=== PATIENT | female | born 1985 | race Caucasian/White ===

== ENCOUNTER 2018-08-24 17:12 | Emergency (ER) | payer SELFPAY ==
[2018-08-24 17:12] VITALS: BP 118/89; PULSE 115; RESP 16; TEMP 37.1; O2SAT 93; BMI 24.0
--- NOTE | 2018-08-24 17:45 | ED.RN ---
PT STATES I CAN'T WAIT, I'M GOING TO SEE IF THERE'S SOMETHING OVER THE COUNTER I CAN TAKE. [place] AND [place]ILY BACK [place] AND WE CAN'T STAY.
== END 2018-08-24 17:50 | disposition left against medical advice (07) ==
LOC: ED 19:26
PROVIDERS: Emergency Provider Emergency Medicine
DX: R69 Illness, unspecified (principal); Z53.21 Procedure and treatment not carried out due to patient leaving prior to being seen by health care provider

== ENCOUNTER 2018-08-24 21:06 | Emergency (ER) | payer SELFPAY ==
[2018-08-24 17:12] VITALS: BMI 24.0
[2018-08-24 21:07] VITALS: BP 114/82; PULSE 106; RESP 18; TEMP 36.8; O2SAT 95; BMI 25.0
--- NOTE | 2018-08-24 22:21 | ED.VISSUMM ---
- ER Visit Summary Date of Service: 08/24/18 Chief Complaint: Vomiting and abdominal pain History of Present Illness: The patient is a 33 F who presents for vomiting and abdominal pain since lunchtime today. Patient just drove up from [place], and they stopped at a restaurant for lunch. Patient did not feel like eating and shortly thereafter started vomiting. She has been vomiting constantly ever since. Denies any diarrhea. She is having severe abdominal cramping. She is status post cholecystectomy and appendectomy. No fever, cough, congestion or other symptoms. No others in the family have similar symptoms. Patient has history of migraines. Tobacco use. Occasional alcohol use. Physical Examination: Vital signs: afebrile, hemodynamically stable, no hypoxia on room air General: well nourished, well developed, laying in a left lateral recumbent position with knees drawn up to chest and holding an emesis bag, appears uncomfortable Skin: warm, dry, no rash, pale HEENT: normocephalic and atraumatic; PERRL, EOMI, moist mucous membranes Cardiovascular: Tachycardic rate and rhythm without murmurs, no peripheral edema, 2+ pulses all distal extremities Respiratory: No increased work of breathing, lungs are clear to auscultation bilaterally, no rales, rhonchi or wheezing Abdominal: Abdomen is soft, tender in the epigastrium with normoactive bowel sounds, no guarding or rebound, no masses MSK: Moves all extremities, no deformities, normal strength Neuro: Awake and alert, oriented ?4. No facial droop, sensation and motor function intact and symmetric Test Results: Abnormal Lab Results 08/24/18 08/24/18 22:10 22:10 WBC 20.0 H RBC 4.93 Hgb 15.4 H Hct 43.5 MCV 88.2 MCH 31.2 MCHC 35.4 RDW 12.6 RDW Differential 40.5 Plt Count 303 MPV 10.7 Immature Gran % (Auto) 0.300 Neut % (Auto) 92.9 H Lymph % (Auto) 4.2 L [place] % (Auto) 2.5 Eos % (Auto) 0.0 Baso % (Auto) 0.1 Absolute Neuts (auto) 18.6 H Absolute Lymphs (auto) 0.84 Total Counted Not Reportable Sodium 135 L Potassium 3.4 L Chloride 102 Carbon Dioxide 26.0 Anion Gap 7 BUN 6 L Creatinine 0.89 Estim Creat Clear Calc 80.90 Est GFR (MDRD) Af Amer 94 Est GFR (MDRD) Non-Af 77 BUN/Creatinine Ratio 6.7 L Glucose 126 H Calcium 9.4 Total Bilirubin 0.60 AST 35 ALT 25 Alkaline Phosphatase 98 Total Protein 8.0 Albumin 4.1 Globulin 3.9 Albumin/Globulin Ratio 1.1 Lipase 63 L Clinical Impression(s) from Imaging Studies Acute Abdomen Series 08/24/18 22:35 IMPRESSION: Moderate stool in colon. Nonspecific bowel gas pattern. No acute cardiopulmonary disease. Electronically Signed: Luis Daniel Justice, at 23:14 EDT Tel , Service support , Medications Given Ondansetron HCl (Zofran Odt) 0 mg PO .TAKE HOME MED ODILON Discontinued Medications Hyoscyamine Sulfate (Levsinex) 0.375 mg PO NOW STA Stop: 08/24/18 23:46 Last Admin: 08/24/18 23:58 Dose: 0.375 mg Sodium Chloride () 1,000 mls @ 1,000 mls/hr IV .Q1H ONE Stop: 08/24/18 23:19 Last Admin: 08/24/18 22:30 Dose: 1,000 mls/hr Ketorolac Tromethamine (Toradol) 30 mg IV X1 ONE Stop: 08/24/18 22:21 Last Admin: 08/24/18 22:30 Dose: 30 mg Ondansetron HCl (Zofran) 4 mg IV X1 ONE Stop: 08/24/18 22:21 Last Admin: 08/24/18 22:30 Dose: 4 mg Promethazine HCl (Phenergan) 12.5 mg IV X1 ONE Stop: 08/24/18 23:47 Last Admin: 08/24/18 23:53 Dose: 12.5 mg Emergency Department Course and Treatment: Patient was given IV fluids, Zofran and Toradol for symptomatic relief. Abdominal exam was benign and was not consistent with a surgical abdomen. Labs were checked and patient did have a leukocytosis of 20 without any bandemia which may be the marginalization secondary to vomiting. Electrolytes showed no significant derangements. Hepatic function and lipase were within normal limits. Abdominal series showed no obstructive bowel gas pattern or free air. She was reevaluated and appeared more comfortable was still was having nausea and some abdominal cramping. She was given IV Phenergan and hyoscamine. On reevaluation patient was sleeping and upon wakening stated her abdominal cramping had resolved and she still had mild nausea. Patient had a normal blood pressure and heart rate was no longer tachycardic. Heart rate 86. Patient felt well enough to go home. She was discharged home with instructions to return if any worsening of her condition. She was sent with Zofran Dosepak since pharmacies are not open at this time. She was given a prescription for Zofran and levsin for further symptoms. Discharged in improved condition. Treatment Plan: [] Disposition: [] Impression: Acute vomiting illness, abdominal cramping This note was generated with [employer] dictation software. It may contain incorrect words, spelling, and punctuation that were not noted in review of the chart prior to signing ED Disposition - Plan for ED Patient: Disposition: Home or Assisted Living Instructions: ED Food Poison Or Gastroenteritis, ED Nausea Vomiting Prescriptions: Ondansetron [Zofran Odt] 4 mg PO Q8H PRN PRN #10 tab PRN Reason: Nausea RX: Hyoscyamine Sulfate [Anaspaz] 0.125 mg PO 4X/DAY PRN PRN #15 tab.rapdis PRN Reason: abdominal cramping Referrals: [facility] Doctor,Out of [Primary Care Provider] - 3-5 Days if not improving Additional Instructions: Use the Zofran as needed for nausea and vomiting. You may use the hyoscyamine for abdominal cramping. Both of these medications will dissolve under your tongue so you do not have to worry about throwing them up. Drink plenty of fluids to stay hydrated. Gatorade and Powerade are good choices while you are not feeling well. If you have any worsening of your condition or any new concerning symptoms, please return immediately to the emergency department for another evaluation.
[2018-08-24] MEDS: Ketorolac 30 MG/ML Syringe IV (22:30)
[2018-08-24] MEDS: Ondansetron 4 MG/2 ML Vial IV (22:30)
[2018-08-24] MEDS: 0.9% Normal Saline 1,000 ML 1000 ML IV (22:30)
[2018-08-24 22:31] LABS: Absolute Lymphocyte Count 0.84 X10^3/ul (0.83-4.51); Absolute Neutrophil Count 18.6 X10^3/uL (2.0-7.7); Basophil# 0.01 X10^3/uL; Basophil% 0.1 % (0-1); Hematocrit 43.5 % (37-47); Hemoglobin 15.4 g/dl (12.0-15.0); Lymphocyte # 0.84 X10^3/ul (4.0); Lymphocyte % 4.2 % (19-41); Mean Corp Hgb Conc 35.4 g/gl (32-36); Mean Corpuscular Hgb 31.2 pg (27.0-32.0); Mean Corpuscular Volume 88.2 fL (81-99); Mean Platelet Vol. 10.7 fl (6.2-12.0); Monocyte% 2.5 % (0-10); Neutrophil % 92.9 % (47-70); Platelet Count 303 K/mm3 (150-450); RBC Distribution Width CV 12.6 % (11.6-14.6); RBC Distribution Width SD 40.5 fl (35.1-43.9); Red Blood Count 4.93 M/mm3 (4.2-5.4)
[2018-08-24 22:35] LABS: POSITIVE COUNT NO; POSITIVE DIFFERENTIAL NO; POSITIVE MORPHOLOGY NO
--- NOTE | 2018-08-24 22:35 | RAD_ITS ---
STUDY: X-RAY - ACUTE ABDOMINAL SERIES REASON FOR EXAM: Female, 33 years old. Nausea and vomiting TECHNIQUE: Single view of the chest. Supine, and erect view(s) of the abdomen were obtained. COMPARISON: None. FINDINGS: The lungs are clear and expanded. Normal size heart. Normal mediastinum and sivan. Normal visualized pulmonary arteries. Normal visualized aortic arch and descending thoracic aorta. There is a moderate amount of colonic fecal material. The soft tissue structures of the abdomen and pelvis are unremarkable. No free air is seen. Normal visualized osseous structures. RAD/Acute Abdomen Inc Chest IMPRESSION: Moderate stool in colon. Nonspecific bowel gas pattern. No acute cardiopulmonary disease. Electronically Signed: Luis Daniel Justice, at 23:14 EDT Tel , Service support ,
[2018-08-24 22:43] LABS: ALB/GLOB Ratio 1.1 RATIO (0.9-2.4); AST(SGOT) 35 U/L (15-37); Alanine Aminotransfer ALT/SGPT 25 U/L (13-56); Albumin, Serum 4.1 g/dL (3.2-5.0); Alkaline Phosphatase 98 U/L (45-117); Anion Gap 7 (5-15); BUN 6 mg/dL (7-18); BUN/Creat Ratio 6.7 RATIO (10-20); Calcium,Total 9.4 mg/dL (8.5-10.1); Chloride 102 mmol/L (98-107); Creatinine, Serum 0.89 mg/dL (0.55-1.02); EST Glomerular Filtration Rate 77 mL/min (>60); Est Glom Filt Rate - Afr Amer 94 mL/min (>60); Globulin 3.9 g/dL (2.2-4.2); Glucose 126 mg/dL (74-106); Lipase 63 U/L (73-393); Potassium 3.4 mmol/L (3.5-5.1); Sodium Level 135 mmol/L (136-145)
[2018-08-24] MEDS: proMETHazine 25 MG/ML Syringe 12.5 MG IV (23:53)
[2018-08-25 00:57] VITALS: BP 140/87; PULSE 85; RESP 12; O2SAT 99
== END 2018-08-25 00:58 | disposition home or self-care (01) ==
PROVIDERS: Emergency Provider Emergency Medicine
DX: R11.10 Vomiting, unspecified (principal); R10.13 Epigastric pain; Z90.49 Acquired absence of other specified parts of digestive tract; Z72.0 Tobacco use
CPT/HCPCS: 74022; 80053; 83690; 85025; 96361; 96374; 96375; 99285; J7030; A4216; J2405